=== PATIENT | female | born 1960 | race Caucasian/White ===

== ENCOUNTER 2021-01-20 19:11 | Emergency (ER) | payer BC, SELFPAY ==
--- NOTE | ~2021-01-20 | XR_ITS ---
EXAMINATION: XR chest 2V DATE: 01/20/2021 19:29 INDICATION: Cough and shortness of breath. TECHNIQUE: Frontal and lateral views of the chest were obtained. COMPARISON: None. FINDINGS: A calcified right lung nodule and calcified hilar lymph nodes are consistent with old granu lomatous disease. No pleural effusion or pneumothorax. The heart size is normal. There is a suture an chor in right shoulder. There are surgical clips in the abdomen. IMPRESSION: 1. No acute cardiopulmonary disease. Reviewed, dictated and finalized at location A.
[2021-01-20 19:20] VITALS: BP 174/73; PULSE 105; RESP 16; TEMP 37.2; O2SAT 98
--- NOTE | 2021-01-20 19:56 | ED.URI ---
HPI - URI/Sore Throat General Chief Complaint: Upper Respiratory Infection Stated Complaint: cough/sinus drainage/tight chest Time Seen by Provider: 01/20/21 19:55 Source: patient, RN notes reviewed and old records reviewed Mode of arrival: ambulatory Limitations: no limitations History of Present Illness HPI Narrative: 60-year-old female who presents to [facility] with complaints of sneezing, coughing since Saturday. Patient states she is here from [place] attending a business training, has been staying at the [facility] at night and attending the business training during the day. Patient states she has had Covid vaccinations but she has coughed so hard that she is almost lost her breath and is concerned. Patient states she talked to her primary care provider and her provider wanted her to have Covid testing. Patient denies any fever, chills, or sweats denies any acute shortness of breath, no tachypnea noted, denies any wheezing. SAO2 98% on room air. MD elicited complaint: cough and other (Sneezing) Related Data Home Medications Medication Instructions Recorded Confirmed escitalopram oxalate 01/20/21 metformin 01/20/21 rosuvastatin 01/20/21 valsartan 01/20/21 Allergies Allergy/AdvReac Type Severity Reaction Status Date / Time No Known Allergies Allergy Verified 01/20/21 19:30 Review of Systems Review of Systems: CONSTITUTIONAL: Denies fever, chills, or sweats. EYES: Denies visual changes, redness, or discharge. ENT: Denies rhinorrhea, congestion, sore throat, or otalgia. CARDIOVASCULAR: Denies chest pain, palpitations, or edema, tightness to chest only with cough RESPIRATORY: Positive for cough some dyspnea. GASTROINTESTINAL: Denies abdominal pain, nausea, vomiting, or diarrhea. GENITOURINARY: Denies dysuria or hematuria. SKIN: Denies rash or itching. MUSCULOSKELETAL: Denies back pain, joint pain, or myalgia. NEUROLOGIC: Denies headache, numbness, or weakness. PSYCHIATRIC: Positive history of anxiety or depression. All systems reviewed & are unremarkable except as noted in HPI and below PMFSH Past Medical History Medical History (Updated 01/22/21 @ 10:07 by Babs Contreras NP) Anxiety and depression Diabetes Elevated cholesterol Fracture of right shoulder required surgical repair Hypertension Surgical History Surgical History (Updated 01/22/21 @ 10:01 by Babs Contreras NP) History of tubal ligation Hx of cholecystectomy Previous section Family History Family History (Updated 01/22/21 @ 10:04 by Babs Contreras NP) Mother Heart disease Hypertension Father Cerebellar ataxia with defective DNA repair Social History Social History (Updated 01/22/21 @ 10:04 by Babs Contreras NP) Smoking status: Never smoker Alcohol intake: current Alcohol use details: rare social Substance use: never Living arrangements: with family Gender identity (if verbalized by the patient): Female Comments At time of signature, agree with nursing past medical, surgical, social and family history. There is no relevant family history pertinent to the presenting complaint Exam Narrative: GENERAL: Well-appearing, well-nourished, and in no acute distress. HEAD: Normocephalic, atraumatic. EYES: PERRLA and EOMI. ENT: Nares clear,clear rhinorrhea no epistaxis. Mucous membranes moist.TM's normal with good light reflex, throat pink with no lesions or exudates, no tonsil swelling NECK: Supple.no lymphadenopathy CHEST: Clear to auscultation. No respiratory distress.positive for harsh dry cough SAO2 98% on room air HEART: Regular rate and rhythm. No murmur heard. Normal peripheral pulses. ABDOMEN: Soft, nontender, nondistended, normal active bowel sounds. EXTREMITIES: Normal range of motion. No edema. SKIN: Warm, dry, no rash. NEURO: No focal deficits. Alert and oriented x3. Course Vital Signs Vital signs: Vital Signs Temperature 37.2 C 01/20/21 19:20 Pulse Rate 105 H
[2021-01-23 17:31] LABS: SARS-CoV-2 RNA PCR Negative
== END 2021-01-20 20:19 | disposition home or self-care (01) ==
PROVIDERS: Emergency Provider Registered Nurse
DX: J06.9 Acute upper respiratory infection, unspecified (principal); Z20.2 Contact with and (suspected) exposure to infections with a predominantly sexual mode of transmission; F41.9 Anxiety disorder, unspecified; F32.9 Major depressive disorder, single episode, unspecified; E78.00 Pure hypercholesterolemia, unspecified; I10 Essential (primary) hypertension
CPT/HCPCS: 71046; 87426; 99213; C9803; G0463; U0003; U0005